=== PATIENT | male | born 1990 | race Caucasian/White ===

== ENCOUNTER 2018-06-03 17:37 | Inpatient (IN) | payer OTHER ==
[~2018-06-03] VITALS: Ht 180.3 cm; Wt 74.2 kg
[2018-06-03 17:39] VITALS: BP 145/88
[2018-06-03 18:06] LABS: CALCIUM 9.7 mg/dL (8.5-10.1); CREATININE 0.8 mg/dL (0.6-1.3); POTASSIUM 3.5 mmol/L (3.5-5.1)
[2018-06-03 18:15] LABS: ABSOLUTE BASOPHILS 0.1 thou/uL (0.0-0.2); ABSOLUTE EOSINOPHILS 0.1 thou/uL (0.0-0.7); ABSOLUTE LYMPHOCYTES 1.7 thou/uL (0.8-5.3); ABSOLUTE MONOCYTES 0.7 thou/uL (0.0-1.2); ABSOLUTE NEUTROPHILS 7.9 thou/uL (1.6-8.1); BASOPHILS 0.6 %; EOSINOPHILS 0.6 %; HEMATOCRIT 47.8 % (42.0-52.0); HEMOGLOBIN 16.2 gm/dL (14.0-18.0); LYMPHOCYTES 16.4 %; MCH 33.1 pg (26.0-34.0); MCHC 33.9 g/dL (28.0-37.0); MCV 97.7 fL (80.0-100.0); MONOCYTES 6.6 %; MPV 7.8 fl. (7.2-11.1); NUCLEATED RBCS 0 /100WBC; PLATELET COUNT* 206 thou/uL (150-400); POLYS 75.8 %; RBC 4.89 mil/uL (4.50-6.00); RDW-CV 13.9 % (10.5-14.5); WBC 10.4 thou/uL (4.0-11.0)
[2018-06-03 18:18] LABS: ALBUMIN 4.3 g/dL (3.4-5.0)
[2018-06-03 20:04] LABS: URINE BLOOD NEGATIVE (Negative); URINE CLARITY CLEAR; URINE COLOR YELLOW; URINE GLUCOSE-RANDOM NEGATIVE (Negative); URINE LEUKOCYTES-REFLEX NEGATIVE (Negative); URINE NITRITE-REFLEX NEGATIVE (Negative); URINE PROTEIN 1+ (Negative)
[2018-06-03 20:06] LABS: URINE BILIRUBIN 1+ (Negative); URINE KETONES 3+ (Negative)
[2018-06-03 20:08] LABS: ACETEST (KETONE CONFIRMATORY) Large (Negative); ICTOTEST (BILI CONFIRMATORY) Negative (Negative)
[2018-06-03 20:11] LABS: AMP/METHAMP Negative (Negative); BARBITURATES Negative (Negative); BENZODIAZEPINES Negative (Negative); COCAINE Negative (Negative); METHADONE Negative (Negative); OPIATES Negative (Negative); PCP Negative (Negative); THC POSITIVE (Negative)
[2018-06-03 21:03] VITALS: BP 130/74
[2018-06-03 22:00] VITALS: BP 138/79
[2018-06-03 22:23] LABS: INR 0.9; PROTIME 9.5 Seconds (9.20-11.50)
[2018-06-03 22:30] LABS: MAGNESIUM 1.7 mg/dL (1.8-2.4); PHOSPHORUS* 2.6 mg/dL (2.5-4.9)
[2018-06-03 23:00] VITALS: BP 142/81
[2018-06-04] VITALS (16 sets, daily range): BP systolic 104–138; BP diastolic 57–83
[2018-06-04 03:54] LABS: CALCIUM 8.2 mg/dL (8.5-10.1); CREATININE 0.7 mg/dL (0.6-1.3); PHOSPHORUS* 3.4 mg/dL (2.5-4.9); POTASSIUM 3.5 mmol/L (3.5-5.1)
--- NOTE | 2018-06-04 17:45 | EKG ---
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[id number] Requested By: Skye Stanley Order Number: [id number] MD: Feroz Malin Measurements Intervals [place] Rate: 73 P: -17 OH: 117 QRS: 51 QRSD: 106 T: 53 QT: 384 QTc: 424 Interpretive Statements Sinus rhythm Borderline short [place] interval Nonspecific T abnormalities, anterior leads No previous ECG available for comparison Electronically Signed On 06-04-2018 17:45:12 [employer] by Feroz Malin [email or web address] <ELECTRONICALLY SIGNED> By: Feroz Malin MD, [facility] 06/04/18 1745 35 35 Feroz Malin MD, FACC /EPI
[2018-06-05] VITALS (14 sets, daily range): BP systolic 110–135; BP diastolic 56–90
[2018-06-05 03:07] LABS: HEMATOCRIT 44.9 % (42.0-52.0); MCHC 33.5 g/dL (28.0-37.0); MCV 98.6 fL (80.0-100.0); MPV 7.5 fl. (7.2-11.1); RBC 4.55 mil/uL (4.50-6.00); RDW-CV 13.4 % (10.5-14.5); WBC 7.7 thou/uL (4.0-11.0)
[2018-06-05 03:35] LABS: ALBUMIN 3.6 g/dL (3.4-5.0); CALCIUM 8.8 mg/dL (8.5-10.1); CREATININE 0.8 mg/dL (0.6-1.3); PHOSPHORUS* 3.5 mg/dL (2.5-4.9); POTASSIUM 3.8 mmol/L (3.5-5.1); TOTAL PROTEIN 6.6 g/dL (6.4-8.2)
[2018-06-05] MEDS ORDERED: NEURONTIN 300300 M1 PO (18:38)
== END 2018-06-05 16:24 | disposition left against medical advice (07) | DRG 101 ==
LOC: M.ERS 17:37 → M.ICU 20:40 → M.TBA-ER 20:40 → M.ICU 21:12
PROVIDERS: Internal Medicine; Personal Emergency Response Attendant; ADMIT Family Medicine
DX: G40.509 Epileptic seizures related to external causes, not intractable, without status epilepticus (principal); F10.231 Alcohol dependence with withdrawal delirium; E46 Unspecified protein-calorie malnutrition; F32.9 Major depressive disorder, single episode, unspecified; F17.210 Nicotine dependence, cigarettes, uncomplicated; K70.9 Alcoholic liver disease, unspecified; E86.9 Volume depletion, unspecified; F12.90 Cannabis use, unspecified, uncomplicated; Z53.21 Procedure and treatment not carried out due to patient leaving prior to being seen by health care provider; Z68.22 Body mass index [BMI] 22.0-22.9, adult; Z91.5 Personal history of self-harm; Z88.8 Allergy status to other drugs, medicaments and biological substances

== ENCOUNTER 2018-06-05 18:15 | Emergency (ER) | payer OTHER ==
[~2018-06-05] VITALS: Ht 180.3 cm; Wt 79.4 kg
[2018-06-05] MEDS ORDERED: NEURONTIN 300300 M1 PO (18:38)
[2018-06-05 19:00] VITALS: BP 142/98
== END 2018-06-05 19:01 | disposition home or self-care (01) ==
LOC: M.ERS 18:15
DX: F10.229 Alcohol dependence with intoxication, unspecified (principal); Y90.9 Presence of alcohol in blood, level not specified; F32.9 Major depressive disorder, single episode, unspecified; Z88.8 Allergy status to other drugs, medicaments and biological substances; Z91.018 Allergy to other foods